=== PATIENT | female | born 1940 | race Caucasian/White ===

== ENCOUNTER → 2024-03-24 10:14 | Outpatient (REF) | payer MEDICARE, BC, SELFPAY ==
[2024-03-24 12:19] LABS: Blood Urea Nitrogen 20 mg/dl (7-17)
== END ==
LOC: HWLAB 10:14
PROVIDERS: ATTENDING PHYSICIAN Otolaryngology; FAMILY PHYSICIAN Internal Medicine
DX: R05.3 Chronic cough (principal)
CPT/HCPCS: 36415; 82565; 84520

== ENCOUNTER → 2024-03-25 09:34 | Outpatient (REF) | payer MEDICARE, BC, SELFPAY | LOC: HWRAD 09:34 | PROVIDERS: ATTENDING PHYSICIAN Otolaryngology; FAMILY PHYSICIAN Internal Medicine | DX: R05.3 Chronic cough (principal) | CPT/HCPCS: 71260; Q9967 ==

== ENCOUNTER → 2024-07-22 11:20 | Outpatient (REF) | payer MEDICARE, BC, SELFPAY | LOC: HWWDC 11:20 | PROVIDERS: ATTENDING PHYSICIAN Internal Medicine | DX: Z12.31 Encounter for screening mammogram for malignant neoplasm of breast (principal) | CPT/HCPCS: 77063; 77067 ==

== ENCOUNTER → 2025-06-21 07:14 | Outpatient (REF) | payer MEDICARE, BC, SELFPAY | LOC: RCS 07:14 | PROVIDERS: ATTENDING PHYSICIAN Internal Medicine | DX: Z13.6 Encounter for screening for cardiovascular disorders (principal); I08.3 Combined rheumatic disorders of mitral, aortic and tricuspid valves; I47.19 Other supraventricular tachycardia; I49.3 Ventricular premature depolarization; I70.0 Atherosclerosis of aorta; Z87.898 Personal history of other specified conditions; Z86.79 Personal history of other diseases of the circulatory system | CPT/HCPCS: 93225; 93226; 93306 ==

== ENCOUNTER → 2025-10-11 13:25 | Outpatient (REF) | payer MEDICARE, BC, SELFPAY | LOC: HWWDC 13:25 | PROVIDERS: ATTENDING PHYSICIAN Internal Medicine | DX: Z12.31 Encounter for screening mammogram for malignant neoplasm of breast (principal) | CPT/HCPCS: 77063; 77067 ==

== ENCOUNTER → 2025-10-22 08:43 | Outpatient (REF) | payer MEDICARE, BC, SELFPAY | LOC: WDC 08:43 | PROVIDERS: ATTENDING PHYSICIAN Internal Medicine | DX: R92.8 Other abnormal and inconclusive findings on diagnostic imaging of breast (principal) | CPT/HCPCS: 76642 ==